=== PATIENT | female | born 1955 | race Two or more races ===

== ENCOUNTER 2020-06-26 16:24 | Emergency (ER) | payer MEDICAID, OTHER ==
[~2020-06-26] VITALS: Ht 165.1 cm; Wt 77.1 kg
[2020-06-26 17:52] VITALS: BP 178/97
== END 2020-06-26 17:59 | disposition home or self-care (01) ==
LOC: ER 16:24
DX: I10 Essential (primary) hypertension (principal); Z76.0 Encounter for issue of repeat prescription

== ENCOUNTER 2020-09-10 20:03 | Emergency (ER) | payer MEDICAID ==
[~2020-09-10] VITALS: Ht 165.1 cm; Wt 81.6 kg
[2020-09-10 20:09] VITALS: BP 144/70
== END 2020-09-10 20:32 | disposition home or self-care (01) ==
LOC: ER 20:03
DX: I10 Essential (primary) hypertension (principal); Z76.0 Encounter for issue of repeat prescription